=== PATIENT | female | born 1995 | race American Indian/Alaskan Native ===

== ENCOUNTER 2019-08-31 19:29 | Emergency (ER) | payer SELFPAY ==
[2019-08-31] MEDS ORDERED: ONDANSETRON 4 MG ODT TAB PO ONE (23:43)
[2019-08-31] MEDS ORDERED: FAMOTIDINE 20 MG TAB PO ONE (23:43)
[2019-08-31] MEDS ORDERED: DICYCLOMINE 20 MG TAB PO ONE (23:43)
[2019-09-01 00:10] LABS: HCG Qualitative,Urine Negative (Negative)
[2019-09-01 00:13] LABS: Bacteria,Urine 2+ /HPF (Negative); Bilirubin,Urine NEG (Negative); Blood,Urine NEG (Negative); Color,Urine Yellow (Yellow); Protein,Urine <15 mg/dL mg/dL (Negative); Urobilinogen,Urine < 2.0 mg/dL (<2.0)
--- NOTE | 2019-09-01 01:17 | Emergency Department Report ---
ED N/V/D HPI - General Chief complaint: Abdominal Pain Stated complaint: NAUSEA/ABDOMINAL PAIN Source: patient Mode of arrival: Ambulatory Limitations: No Limitations - History of Present Illness Initial comments: Patient is a 24-year-old -[place]ian female with past medical history of PCOS who presents to the ED with acute onset persistent epigastric pain with nausea and vomiting and diarrhea for the last 2 days. Patient states that she has had up to 4 episodes of nausea and vomiting and has not been able to keep anything down because of persistent nausea and vomiting. Patient states that other family members have had similar symptoms. Patient denies fever, chills, dizziness, syncope, chest pain, shortness of breath, dysuria, urinary frequency and urgency, change in vision, sore throat, cough, vaginal bleeding or vaginal discharge and headache. MD complaint: nausea, vomiting, diarrhea, abdominal pain -: Sudden (2) Description of Vomiting: food contents, watery Description of Diarrhea: water Associated Abdominal Pain: Yes (epigastric) Location: epigastric Radiation: none Severity: moderate Pain Scale: 3 Quality: aching, dull Consistency: constant Improves with: none Worsens with: vomiting Context: possible food poisoning, sick contacts Associated Symptoms: denies other symptoms, myalgias, loss of appetite, malaise, nausea/vomiting. denies: chest pain, cough, diaphoresis, fever/chills, headaches, rash, dysuria, shortness of breath, syncope, weakness, other - Related Data Previous Rx's Medication Instructions Recorded Last Taken Type Dicyclomine [Bentyl] 20 mg PO Q6H PRN #30 tablet 09/01/19 Unknown Rx Famotidine [Pepcid] 20 mg PO Q12H #30 tablet 09/01/19 Unknown Rx Ondansetron [Zofran Odt] 4 mg PO Q6HR PRN #20 tab.rapdis 09/01/19 Unknown Rx Allergies Allergy/AdvReac Type Severity Reaction Status Date / Time tpmatoe Allergy Hives Uncoded 08/31/19 19:53 ED Review of Systems ROS: Stated complaint: NAUSEA/ABDOMINAL PAIN Other details as noted in HPI Constitutional: denies: chills, fever Eyes: denies: eye pain, eye discharge, vision change ENT: denies: ear pain, throat pain Respiratory: denies: cough, shortness of breath, wheezing Cardiovascular: denies: chest pain, palpitations Endocrine: no symptoms reported Gastrointestinal: abdominal pain, nausea, vomiting, diarrhea Genitourinary: denies: urgency, dysuria, discharge Musculoskeletal: arthralgia, myalgia. denies: back pain, joint swelling Skin: denies: rash, lesions Neurological: denies: headache, weakness, paresthesias Psychiatric: denies: anxiety, depression Hematological/Lymphatic: denies: easy bleeding, easy bruising ED Past Medical Hx - Past Medical History Previous Medical History?: No - Surgical History Past Surgical History?: No - Social History Smoking Status: Never Smoker Substance Use Type: None - Medications Home Medications: Home Medications Medication Instructions Recorded Confirmed Last Taken Type Dicyclomine [Bentyl] 20 mg PO Q6H PRN #30 tablet 09/01/19 Unknown Rx Famotidine [Pepcid] 20 mg PO Q12H #30 tablet 09/01/19 Unknown Rx Ondansetron [Zofran Odt] 4 mg PO Q6HR PRN #20 tab.rapdis 09/01/19 Unknown Rx ED Physical Exam - General Limitations: No Limitations General appearance: alert, in no apparent distress - Head Head exam: Present: atraumatic, normocephalic, normal inspection - Eye Eye exam: Present: normal appearance, PERRL, EOMI - ENT ENT exam: Present: normal exam, normal orophraynx, mucous membranes moist, TM's normal bilaterally, normal external ear exam - Neck Neck exam: Present: normal inspection, full ROM - Respiratory Respiratory exam: Present: normal lung sounds bilaterally. Absent: respiratory distress, wheezes, rales, rhonchi, chest wall tenderness, accessory muscle use, decreased breath sounds - Cardiovascular Cardiovascular Exam: Present: normal rhythm, tachycardia, normal heart sounds. Absent: systolic murmur, diastolic murmur, rubs, gallop - GI/Abdominal GI/Abdominal exam: Present: soft, normal bowel sounds. Absent: tenderness, guarding, rebound, hyperactive bowel sounds, hypoactive bowel sounds, organomegaly - Extremities Exam Extremities exam: Present: normal inspection, full ROM, normal capillary refill - Back Exam Back exam: Present: normal inspection, full ROM. Absent: tenderness, CVA tenderness (R), CVA tenderness (L), muscle spasm, paraspinal tenderness, vertebral tenderness - Neurological Exam Neurological exam: Present: alert, oriented X3, CN II-XII intact, normal gait, reflexes normal - Psychiatric Psychiatric exam: Present: normal affect, normal mood - Skin Skin exam: Present: warm, dry, intact, normal color. Absent: rash ED Course Vital Signs 08/31/19 08/31/19 19:56 21:43 Temperature 98.7 F 98.7 F Pulse Rate 102 H 103 H Respiratory 20 20 Rate Blood Pressure 147/80 147/80 O2 Sat by Pulse 99 99 Oximetry ED Medical Decision Making - Medical Decision Making This is a 24-year-old female who presented to the ED with complaint of acute onset persistent nausea and vomiting with diarrhea and epigastric pain for the last 2 days. In the ED, patient is alert and oriented x3 and is not in distress. Patient stated that all her family members have had similar symptoms. Patient was treated for nausea vomiting and pain, and urinalysis was unremarkable. Patient symptoms likely due to viral gastroenteritis given the fact that the entire family have similar symptoms. Patient was observed in the ED and on reevaluation, patient passed oral fluid challenge in the ED. Patient was discharged home on antiemetics, antidiarrheal and antacids and was advised to maintain a clear liquid diet for 12 to 24 hours and follow-up with a primary care physician in 5 to 7 days for reevaluation or return to the ED immediately if symptoms get worse. - Differential Diagnosis Gastroenteritis; GERD; Gastritis; UTI Critical care attestation.: If time is entered above; I have spent that time in minutes in the direct care of this critically ill patient, excluding procedure time. ED Disposition Clinical Impression: Viral gastroenteritis, Nausea, vomiting and diarrhea GERD (gastroesophageal reflux disease) Qualifiers: Esophagitis presence: without esophagitis Qualified Code(s): K21.9 - Gastro- esophageal reflux disease without esophagitis Disposition: DC-01 TO HOME OR SELFCARE Is pt being admited?: No Does the pt Need Aspirin: No Condition: Stable Instructions: Abdominal Pain (ED), Acute Nausea and Vomiting (ED), Gastroenteritis (ED) Additional Instructions: Maintain a clear liquid diet for 12 to 24 hours. Take medications with food, drink plenty of fluids and follow-up with the primary care physician in 5 to 7 days for reevaluation. Return to the ED immediately if symptoms get worse. Prescriptions: Dicyclomine [Bentyl] 20 mg PO Q6H PRN #30 tablet PRN Reason: Pain , Severe (7-10) Famotidine [Pepcid] 20 mg PO Q12H #30 tablet Ondansetron [Zofran Odt] 4 mg PO Q6HR PRN #20 tab.rapdis PRN Reason: Nausea Referrals: [facility] [Outside] - 3-5 Days Time of Disposition: 01:22 Print Language: MONGOLIAN
[2019-09-01 02:05] VITALS: BP 127/74
== END 2019-09-01 02:50 | disposition home or self-care (01) ==
LOC: ED 19:29
DX: A08.4 Viral intestinal infection, unspecified (principal); R11.2 Nausea with vomiting, unspecified; R19.7 Diarrhea, unspecified; K21.9 Gastro-esophageal reflux disease without esophagitis; Z79.899 Other long term (current) drug therapy; Z88.8 Allergy status to other drugs, medicaments and biological substances
CPT/HCPCS: 81001; 81025; 99283; Q0162

== ENCOUNTER 2020-01-07 13:53 | Emergency (ER) | payer SELFPAY ==
[2020-01-07 14:47] VITALS: BP 137/88
--- NOTE | 2020-01-07 14:51 | Emergency Department Report ---
ED Back Pain/Injury HPI - General Chief Complaint: Back Pain/Injury Stated Complaint: BACK PAIN/TOOTH PAIN Time Seen by Provider: 01/07/20 14:45 Source: patient Limitations: No Limitations - History of Present Illness Initial Comments: Patient i patient did not s a 24-year-old -[place] female who presents for low back pain x2 days. States 4/10 pain after bending and reaching for a product at home. Patient denies fall or trauma. There is no numbness, tingling, no loss or decrease in bowel or bladder function. Patient remains ANO x3 amatory with steady gait without neuro deficit. Vascular surgery 2 weeks ago. There is no dysuria, frequency, urgency no vaginal discharge. MD Complaint: back injury Onset/Timin -: days(s) Similar Symptoms Previously: Yes ( patient is clearly arrived at length today not happy and is been continuou) Place: home (.) Radiation: none Severity: mild Severity scale (0 -10): 4 Quality: aching Consistency: intermittent Worsens With: movement Context: while lifting, turning/twisting Associated Symptoms: denies: numbness, difficulty urinating, incontinence, fever/chills - Related Data Previous Rx's Medication Instructions Recorded Last Taken Type Dicyclomine [Bentyl] 20 mg PO Q6H PRN #30 tablet 09/01/19 Unknown Rx Famotidine [Pepcid] 20 mg PO Q12H #30 tablet 09/01/19 Unknown Rx Ondansetron [Zofran Odt] 4 mg PO Q6HR PRN #20 tab.rapdis 09/01/19 Unknown Rx Cyclobenzaprine [Flexeril] 10 mg PO BID PRN #30 tablet 01/07/20 Unknown Rx Naproxen 500 mg PO BID PRN #30 tablet 01/07/20 Unknown Rx Allergies Allergy/AdvReac Type Severity Reaction Status Date / Time tpmatoe Allergy Hives Uncoded 08/31/19 19:53 ED Review of Systems ROS: Stated complaint: BACK PAIN/TOOTH PAIN Other details as noted in HPI Constitutional: denies: chills, fever Eyes: denies: eye pain, eye discharge, vision change ENT: denies: ear pain, throat pain Respiratory: denies: cough, shortness of breath, wheezing Cardiovascular: denies: chest pain, palpitations Endocrine: no symptoms reported Gastrointestinal: denies: abdominal pain, nausea, diarrhea Genitourinary: denies: urgency, dysuria, discharge Musculoskeletal: back pain. denies: joint swelling, arthralgia Skin: denies: rash, lesions Neurological: denies: headache, weakness, paresthesias Psychiatric: denies: anxiety, depression Hematological/Lymphatic: denies: easy bleeding, easy bruising ED Past Medical Hx - Past Medical History Previous Medical History?: No - Surgical History Past Surgical History?: No - Social History Smoking Status: Former Smoker Substance Use Type: Alcohol - Medications Home Medications: Home Medications Medication Instructions Recorded Confirmed Last Taken Type Dicyclomine [Bentyl] 20 mg PO Q6H PRN #30 tablet 09/01/19 Unknown Rx Famotidine [Pepcid] 20 mg PO Q12H #30 tablet 09/01/19 Unknown Rx Ondansetron [Zofran Odt] 4 mg PO Q6HR PRN #20 tab.rapdis 09/01/19 Unknown Rx Cyclobenzaprine [Flexeril] 10 mg PO BID PRN #30 tablet 01/07/20 Unknown Rx Naproxen 500 mg PO BID PRN #30 tablet 01/07/20 Unknown Rx ED Physical Exam - General Limitations: No Limitations General appearance: alert, in no apparent distress - Head Head exam: Present: atraumatic, normocephalic - Eye Eye exam: Present: normal appearance, EOMI Pupils: Present: normal accommodation - ENT ENT exam: Present: mucous membranes moist - Neck Neck exam: Present: normal inspection, full ROM. Absent: tenderness - Respiratory Respiratory exam: Present: normal lung sounds bilaterally. Absent: respiratory distress, wheezes, stridor - Cardiovascular Cardiovascular Exam: Present: regular rate, normal rhythm, normal heart sounds - GI/Abdominal GI/Abdominal exam: Present: soft, normal bowel sounds. Absent: distended, tenderness, bruit, hernia - Rectal Rectal exam: Present: deferred - Extremities Exam Extremities exam: Present: normal inspection, full ROM, normal capillary refill. Absent: tenderness - Back Exam Back exam: Present: normal inspection, full ROM, tenderness, muscle spasm, paraspinal tenderness. Absent: CVA tenderness (R), CVA tenderness (L), vertebr al tenderness - Neurological Exam Neurological exam: Present: alert, oriented X3, CN II-XII intact, normal gait, reflexes normal. Absent: motor sensory deficit - Expanded Neurological Exam Expanded Patient oriented to: Present: person, place, time Speech: Present: fluid speech Motor strength exam: RUE: 5, LUE: 5, RLE: 5, LLE: 5 DTR: ankle (R): 2+, ankle (L): 2+ Best Eye Response (Brenda): (4) open spontaneously Best Motor Response (Marianna): (6) obeys commands Best Verbal Response (Brenda): (5) oriented Brenda Total: 15 - Psychiatric Psychiatric exam: Present: normal affect, normal mood - Skin Skin exam: Present: warm, dry, intact, normal color. Absent: rash ED Course Vital Signs 01/07/20 14:01 Temperature 98.4 F Pulse Rate 99 H Respiratory 18 Rate Blood Pressure 137/88 O2 Sat by Pulse 97 Oximetry ED Medical Decision Making - Medical Decision Making pain is reproducible to deep palpation, no weakness , rom intact unrestricted, no posterior vertebral point tenderness, gait is steady, there is no dysuria, frequency or urgency , LMP 2 weeks ago, plan, dc to home, back exercises, moist heat, nsaids, follow up with pcp in 2-3 days pt verbalized agreement and understandinging of discharge plan. Critical care attestation.: If time is entered above; I have spent that time in minutes in the direct care of this critically ill patient, excluding procedure time. ED Disposition Clinical Impression: Low back strain Qualifiers: Encounter type: initial encounter Qualified Code(s): S39.012A - Strain of muscle, fascia and tendon of lower back, initial encounter Disposition: DC-01 TO HOME OR SELFCARE Is pt being admited?: No Does the pt Need Aspirin: No Condition: Stable Instructions: Muscle Strain (ED), Low Back Strain (ED) Prescriptions: Cyclobenzaprine [Flexeril] 10 mg PO BID PRN #30 tablet PRN Reason: Muscle Spasm Naproxen 500 mg PO BID PRN #30 tablet PRN Reason: pain Referrals: [facility] [Provider Group] - 3-5 Days Forms: Work/School Release Form(ED) Time of Disposition: 14:57
== END 2020-01-07 15:25 | disposition home or self-care (01) ==
LOC: ED 13:53
DX: S39.012A Strain of muscle, fascia and tendon of lower back, initial encounter (principal); Z87.891 Personal history of nicotine dependence; X58.XXXA Exposure to other specified factors, initial encounter; Y93.89 Activity, other specified; Y92.89 Other specified places as the place of occurrence of the external cause; Y99.8 Other external cause status
CPT/HCPCS: 99282